=== PATIENT | male | born 1955 | race Caucasian/White ===

== ENCOUNTER 2019-09-24 09:52 | Outpatient (CLI) | payer MEDICARE, BC | END 2019-09-24 23:59 | disposition home or self-care (01) | LOC: CFH 09:52 | PROVIDERS: ATTEND Internal Medicine Cardiovascular Disease | DX: I08.2 Rheumatic disorders of both aortic and tricuspid valves (principal); R00.1 Bradycardia, unspecified; I10 Essential (primary) hypertension | CPT/HCPCS: 78452; 93017; 93306; A9502 ==